=== PATIENT | male | born 1950 | race Two or more races ===

== ENCOUNTER → 2020-01-24 | Outpatient (CLI) | payer OTHER | END | disposition home or self-care (01) | LOC: OFIC 805 11:26 | PROVIDERS: ATTEND Otolaryngology | DX: J30.89 Other allergic rhinitis (principal); K21.9 Gastro-esophageal reflux disease without esophagitis; R07.0 Pain in throat ==

== ENCOUNTER 2020-11-28 09:51 | Outpatient (CLI) | payer OTHER | END 2020-11-28 09:58 | disposition home or self-care (01) | LOC: NUCLEAR 09:51 | PROVIDERS: ATTEND Internal Medicine Cardiovascular Disease | DX: I20.1 Angina pectoris with documented spasm (principal) ==

== ENCOUNTER 2020-12-05 09:28 | Outpatient (CLI) | payer OTHER | END 2020-12-05 09:34 | disposition home or self-care (01) | LOC: NUCLEAR 09:28 | PROVIDERS: ATTEND Internal Medicine Cardiovascular Disease | DX: I20.0 Unstable angina (principal) | CPT/HCPCS: 78452; 93017; A9500 ==